=== PATIENT | female | born 1945 | race Caucasian/White ===

== ENCOUNTER 2019-10-10 22:44 | Observation (INO) | payer MEDICARE, OTHER ==
[~2019-10-10] VITALS: Ht 170.2 cm; Wt 118.8 kg
[2019-10-10] MEDS ORDERED: ASPIRIN 81 MG CHEW TAB PO ONE (23:15)
[2019-10-10] MEDS ORDERED: DIGOXIN INJ 0.25 MG/ML 2 ML AMP IV ONE (23:30)
[2019-10-10 23:36] LABS: BASOPHILS # (AUTO) 0.1 (0.0-0.1); BASOPHILS % 0.5 % (0.0-1.0); EOSINOPHILS # (AUTO) 0.3 (0.0-0.4); HEMATOCRIT 31.2 % (34.2-44.1); HEMOGLOBIN 9.5 g/dL (12.0-16.0); LYMPHOCYTES # (AUTO) 1.7 (1.0-3.2); LYMPHOCYTES % 15.2 % (18.0-39.1); MEAN CORPUSCULAR HEMOGLOBIN 24.1 pg (28-32); MEAN CORPUSCULAR HGB CONC 30.4 g/dL (31-35); MONOCYTES # (AUTO) 1.4 (0.2-0.8); NEUTROPHILS # (AUTO) 7.4 (2.1-6.9); NEUTROPHILS % 67.9 % (38.7-80.0); PLATELET COUNT 405 x10e3/uL (140-360); RED BLOOD COUNT 3.95 x10e6/uL (3.6-5.1); RED CELL DISTRIBUTION WIDTH 18.5 % (11.7-14.4)
--- NOTE | 2019-10-10 23:54 | Diagnostic Imaging Report ---
EXAMINATION: CHEST SINGLE (PORTABLE) INDICATION: ^Y ^weakness ^[id number] ^[id number] COMPARISON: None FINDINGS: AP view TUBES and LINES: None. LUNGS: Lungs are well inflated. Focal airspace opacity of the left lower lung zone. There is no evidence of pneumonia or pulmonary edema. PLEURA: No definite pleural effusion. No pneumothorax. HEART AND MEDIASTINUM: The cardiomediastinal silhouette is mildly enlarged. BONES AND SOFT TISSUES: No acute osseous lesion. Soft tissues are unremarkable. UPPER ABDOMEN: No free air under the diaphragm. IMPRESSION: 1. Focal airspace opacity of the left lower lung zone may represent pneumonia, atelectasis, and/or scarring. A follow-up chest radiograph is recommended in 3 months to document resolution. 2. Mild cardiomegaly. Signed by: Gokul Douglas MD on 10/10/2019 11:51 PM
[2019-10-10 23:57] LABS: ALANINE AMINOTRANSFERASE 24 IU/L (0-55); ALBUMIN 2.4 g/dL (3.5-5.0); ALBUMIN/GLOBULIN RATIO 0.6 (0.8-2.0); ALKALINE PHOSPHATASE 361 IU/L (40-150); ANION GAP 12.8 mmol/L (8-16); BLOOD UREA NITROGEN 37 mg/dL (7-26); BUN/CREATININE RATIO 29 (6-25); CALCIUM 8.4 mg/dL (8.4-10.2); CARBON DIOXIDE 20 mmol/L (22-29); CHLORIDE 113 mmol/L (98-107); CREATINE KINASE 23 IU/L (29-168); CREATININE, SERUM 1.28 mg/dL (0.57-1.11); EST GLOMERULAR FILTRATION RATE 41 ML/MIN (60-); GLUCOSE 127 mg/dL (74-118); POTASSIUM 3.8 mmol/L (3.5-5.1); SODIUM 142 mmol/L (136-145)
[2019-10-11] MEDS ORDERED: DILTIAZEM HCL 5 MG/ML 5 ML VIAL IV STA (01:35)
[2019-10-11] MEDS ORDERED: AMIODARONE HCL 150MG 100 ML ONE (02:16)
[2019-10-11] MEDS ORDERED: AMIODARONE HCL 150 MG/100 ML BAG IV ONE (02:30)
[2019-10-11] MEDS ORDERED: AMIODARONE 900MG 500 ML IV ONE (02:34)
[2019-10-11] MEDS ORDERED: AMIODARONE HCL 360MG 200 ML IV ONE (02:45)
[2019-10-11 04:00] VITALS: BP 128/54
--- NOTE | 2019-10-11 05:10 | NUR ---
RECEIVED PT BY WHEELCHAIR. PT IS AAOX3, RR EVEN AND NON-LABORED, ON ROOM AIR. NO S/SX OF DISTRESS NOTED. PT AMBULATORY WITH WALKER TO HOSPITAL BED. ORIENTED PT TO HOSPITAL ROOM, CALL LIGHT, PHONE, BED CONTROLS AND LIGHTS. LEFT PT SITTING ON SIDE OF BED, BED IN LOW LOCKED POSITION, SIDE RAILS UPX2, CALL LIGHT AND PHONE WITHIN REACH.
[2019-10-11] MEDS ORDERED: RYTHMOL SR225 MG PO (05:42)
[2019-10-11] MEDS ORDERED: POTASSIUM CHLO20 ME1 PO (05:42)
[2019-10-11] MEDS ORDERED: DOXYCYCLINE HY100 MG PO (05:42)
[2019-10-11] MEDS ORDERED: LASIX40 MG PO (05:42)
[2019-10-11] MEDS ORDERED: XARELTO20 MG PO (05:42)
[2019-10-11 06:19] VITALS: BP 128/54
--- NOTE | 2019-10-11 06:26 | NUR ---
SPOKE WITH Nidhi CLAY NP FOR MD ENCARNACION CONCERNING PT ADMISSION. NEW ORDERS RECEIVED. ANNIE HUMPHREY NP TO SEE PATIENT LATER TODAY.
[2019-10-11 07:56] VITALS: BP 129/42
[2019-10-11] MEDS ORDERED: ONDANSETRON HCL INJ 2MG/ML 2ML 2 MG/ML VIAL IV PRN (08:00)
[2019-10-11] MEDS ORDERED: METOPROLOL TARTRATE INJ 1 MG/ML VIAL IV PRN (08:00)
[2019-10-11] MEDS ORDERED: ACETAMINOPHEN 325 MG TAB PO PRN (08:00)
[2019-10-11 08:39] VITALS: BP 129/42
[2019-10-11 08:50] LABS: CREATINE KINASE MB 1.1 ng/mL (0-5.0)
[2019-10-11] MEDS ORDERED: DOXYCYCLINE HYCLATE TABLET 100 MG TAB PO SCH (09:00)
[2019-10-11] MEDS ORDERED: POTASSIUM CHLORIDE 20 MEQ TAB CR PO SCH (09:00)
[2019-10-11] MEDS ORDERED: FAMOTIDINE 20 MG/2 ML VIAL IV SCH (09:00)
[2019-10-11] MEDS ORDERED: FUROSEMIDE INJ 10 MG/ML 4 ML VIAL IV SCH (09:00)
[2019-10-11 09:07] LABS: CHOL/HDL RATIO 4.1 (3.0-3.6)
[2019-10-11] MEDS ORDERED: METOPROLOL TARTRATE 25 MG TAB PO SCH (09:30)
[2019-10-11] MEDS: PROPAFENONE HCL 150 MG TAB PO SCH ×2 (09:46→16:03)
[2019-10-11] MEDS ORDERED: LOPRESSOR25 MG PO (10:15)
[2019-10-11] MEDS ORDERED: PROPAFENONE HC150 MG PO (10:15)
--- NOTE | 2019-10-11 11:08 | Consultation ---
DATE OF CONSULTATION: 10/11/2019 REASON FOR CONSULTATION: Atrial fibrillation. CHIEF COMPLAINT: Weakness. HISTORY OF PRESENT ILLNESS: This is a 74-year-old female with history of paroxysmal atrial fibrillation, MELISSA, PE, bilateral DVT, gastric ulcer, and morbid obesity. The patient presents to [facility] ER with complaints of weakness, tiredness, was noted to be in atrial fibrillation with RVR, was given diltiazem/amiodarone and which the patient has converted back to sinus rhythm. Cardiology was consulted to evaluate the patient. The patient is seen in room, reports that she is back to her baseline. She reports that she is being followed by Dr. Valdez at [facility]. Most recent visit was June 2019. The patient reports for the past several days has felt weak, fatigued, tired, however, denies any palpitations. Reports the same symptoms as she had in July 2018, when she was found to be in atrial fibrillation with RVR. The patient has been maintained on Rythmol therapy by her dry box operator. The patient denies any chest pains or shortness of breath. Reports that she is back to baseline and is requesting to go home. Follow up with her primary dry box operator. PAST MEDICAL HISTORY: Paroxysmal atrial fibrillation, obstructive sleep apnea, bilateral PE, bilateral DVT most recent in 2017, gastric ulcers. PAST SURGICAL HISTORY: Hysterectomy, appendectomy, cholecystectomy. FAMILY HISTORY: Her mother apparently with history of ovarian cancer. Father with history of lung cancer. One brother with a history of diabetes. SOCIAL HISTORY: She is a . She denies any alcohol or tobacco use. HOME MEDICATIONS: Include Xarelto 20 mg daily, Rythmol t.i.d., Lasix 40 mg b.i.d., and potassium chloride 20 mEq daily. ALLERGIES: CODEINE, SULFA, TRIMETHOPRIM. REVIEW OF SYSTEMS: GENERAL: Denies any weight changes. Positive for weakness, fatigue. Denies any fevers, chills, or night sweats. SKIN: No rashes. Positive for bruises. HEENT: Denies any nausea, vomiting, vision change, blurred vision, double vision, epistaxis, sore throat, or swollen gums. CARDIAC: Denies any chest pain. Denies any palpitation. Positive for dyspnea on exertion. Denies any orthopnea or PND. Positive for intermittent lower extremity edema. RESPIRATORY: Positive for shortness of breath. No wheezing, coughing, or hemoptysis. GI: Reports good appetite. No nausea, vomiting, diarrhea, constipation, melena, tarry bloody stools. URINARY: Denies any frequency. Positive for frequency or urgency. Denies any dysuria or hematuria. VASCULAR: Positive for intermittent lower extremity edema. Denies any claudication. MUSCULOSKELETAL: Positive for joint pains, back pain. NEUROLOGIC: Denies any numbness, tingling, tremors, weakness, paralysis, or seizures. HEMATOLOGY: Denies any anemia. Positive for bruising. ENDOCRINE: Denies any heat or cold intolerance, polyuria, polydipsia, or polyphagia. PHYSICAL EXAMINATION: VITAL SIGNS: Height 57 inches, weight 262 pounds, BMI 41. Current vital signs temperature 97.6, pulse 91, respiratory rate 20, blood pressure 128/54, and pulse ox 96% on room air. GENERAL: Appears stated age, reliable informant. No acute distress. SKIN: No rashes. Positive for bruising. HEENT: Normocephalic. Pupils are equal and reactive. Extraocular movements intact. Trachea midline. No JVD. No carotid bruit noted. HEART: Regular rate and rhythm. Soft systolic murmur heard in right upper sternal border. PMI about 4th and 5th intercostal space. LUNGS: Bilateral breath sounds clear to auscultation. No wheezing, crackles noted. ABDOMEN: Soft, nontender, and nondistended. No organomegaly. However, the patient is morbidly obese. MUSCULOSKELETAL: Good muscle strength throughout. Trace lower extremity edema noted. VASCULAR: +2 radial pulses bilaterally. Current +1 DP and PT pulses bilaterally. NEUROLOGIC: Cranial nerves II through XII seem intact. LABORATORY DATA: Sodium 142, potassium 3.8, chloride 113, BUN 37, creatinine 1.28, glucose 127. Troponin less than 0.001, next 0.01. BNP 184. TSH and lipid panel pending. COVID pending. Chest x-ray showing all cardiomegaly in focal left lower lobe opacity. EKG showing atrial fibrillation with RVR with heart rate of 116, right bundle branch block. ASSESSMENT AND PLAN: 1. Paroxysmal atrial fibrillation. 2. History of deep venous thrombosis and pulmonary embolism, most recent 2017. 3. Obstructive sleep apnea. 4. Morbid obesity. PLAN: 1. The patient presents to [facility] ER with complaints of weakness, fatigue, tiredness for several days, noted to be in atrial fibrillation with RVR, was given diltiazem, amiodarone, now has converted back to sinus rhythm. The patient reports that she is back to her baseline and is wishing to go home and follow up with her primary dry box operator, Dr. Valdez at [facility]. 2. We will add a beta-alanna therapy for rate control. 3. Continue the patient's OAC therapy. 4. We will restart the patient's home antiarrhythmic therapy. 5. Check TSH, lipid panel. 6. We will do echo to evaluate heart function structure. 7. Long discussion with the patient about atrial fibrillation and natural history. The patient again reports that she is back to baseline and is requesting to go home. 8. We will continue to monitor. Further recommendations to follow. Thank you very much for this consult. Seen and evaluated P.A.Fib. , Hypertensive heart disease, Chronic diastolic heart dysfunction, History of PE and DVT Agree with note Dictated by Stefano Mitchell NP Arelis Savage MD DC/SYLVAIN /[id number] NATA
[2019-10-11 12:02] VITALS: BP 91/38
--- NOTE | 2019-10-11 13:20 | NUR ---
echocardiogram tech at bedside; pt awake, alert, oriented x3, no signs of distress.
[2019-10-11 17:27] VITALS: BP 121/52
--- NOTE | 2019-10-11 18:49 | Discharge Summary ---
ADMISSION DIAGNOSIS: 1. Atrial fibrillation with rapid ventricular response. 2. Past medical history of pulmonary embolism and deep venous thrombosis. 3. [id number] diastolic congestive heart failure plus bullous pemphigoid. 4. Acute kidney injury versus chronic kidney disease. 5. Morbid obesity with a BMI of 41. DISCHARGE DIAGNOSES: 1. Atrial fibrillation with rapid ventricular response. 2. Past medical history of pulmonary embolism and deep venous thrombosis. 3. [id number] diastolic congestive heart failure plus bullous pemphigoid. 4. Acute kidney injury versus chronic kidney disease. 5. Morbid obesity with a BMI of 41. HISTORY: MELISSA, atrial fibrillation, PE, bilateral DVT, bullous pemphigoid, chronic diastolic congestive heart failure. SURGICAL HISTORY: Hysterectomy, appendectomy, cholecystectomy. FAMILY HISTORY: The patient's brother has diabetes. The patient's mom, grandmother, and aunt had cancer. SOCIAL HISTORY: Noncontributory. HOSPITAL COURSE: A 74-year-old female, admits with complaints of generalized weakness and near-syncope for 10 days. She denies syncope, dizziness, palpitation, shortness of breath, fever, cough, and sick contacts. She experienced chest pain across her chest that radiated to her back, but once she went to a chiropractor, the pain resolved. There have been no recent changes in medication. On admission, an EKG was done, which showed atrial fibrillation at a rate of 160. The patient was given diltiazem, amnio, dig in the ER, which converted the patient. She will continue her Xarelto. She has been running sinus rhythm per cardiac monitor technician. Her TSH is within normal limits. Cardiology was consulted. Chest x-ray showed mild cardiomegaly. BNP on admission was 184. She was resumed on her Lasix. Per Cardiology recommendation, the patient can discharge home with new prescriptions for metoprolol b.i.d. and reduced dose of Rythmol. She will follow up with primary care in 1 to 2 weeks and Cardiology as discussed. The patient understands discharge instructions and agrees to plan. Vital signs stable. The patient is afebrile. Dictated by Lisa Pena NP Eusebio Jin MD BIN/MODL /[id number]
[2019-10-11] MEDS ORDERED: RIVAROXABAN 20 MG TABLET PO SCH (21:00)
== END 2019-10-11 18:06 | disposition home or self-care (01) ==
LOC: ER 23:10 → ERHOLD 10-11 05:01 → ER 10-11 05:10 → MED/SURG 10-11 05:34
PROVIDERS: ADMIT Internal Medicine; ATTEND Internal Medicine
DX: I48.91 Unspecified atrial fibrillation (principal); Z79.01 Long term (current) use of anticoagulants; Z86.711 Personal history of pulmonary embolism; Z86.718 Personal history of other venous thrombosis and embolism; E66.01 Morbid (severe) obesity due to excess calories; Z68.41 Body mass index [BMI] 40.0-44.9, adult; N17.9 Acute kidney failure, unspecified; I13.0 Hypertensive heart and chronic kidney disease with heart failure and stage 1 through stage 4 chronic kidney disease, or unspecified chronic kidney disease; I50.33 Acute on chronic diastolic (congestive) heart failure; N18.9 Chronic kidney disease, unspecified
CPT/HCPCS: 36415 ×2; 71045; 80053; 80061; 82550 ×2; 82553 ×2; 83880; 84443; 84484 ×2; 85025; 87635; 93005; 93306; 99284; G0378; J1160; J1940